=== PATIENT | female | born 1980 | race Hispanic/Latino ===

== ENCOUNTER 2021-09-30 15:38 | Emergency (ER) | payer BC ==
[~2021-09-30] VITALS: Ht 165.1 cm; Wt 131.3 kg
[2021-09-30] MEDS ORDERED: IBUPROFEN 600 MG TAB PO STA (16:55)
[2021-09-30] MEDS ORDERED: IBUPROFEN 600 MG TAB ONE (17:26)
[2021-09-30] MEDS ORDERED: AZITHROMYCIN250 MG PO (17:56)
== END 2021-09-30 18:03 | disposition home or self-care (01) ==
LOC: FSED 16:15
DX: R50.9 Fever, unspecified (principal); B95.5 Unspecified streptococcus as the cause of diseases classified elsewhere; E11.9 Type 2 diabetes mellitus without complications
CPT/HCPCS: 71046; 81003; 81025; 83518; 87400; 99283